=== PATIENT | female | born 1990 | race African-American/Black ===

== ENCOUNTER 2017-04-12 05:12 | Inpatient (IN) ==
--- NOTE | 2017-04-12 01:48 | HISTORY AND PHYSICAL ---
HISTORY OF PRESENT ILLNESS: Ernestine is a 27-year-old gravid female, 3, para 1-0-1-1, whose estimated gestational age is 39 weeks. Desires repeat section, as well as permanent sterilization. care has been uncomplicated. PAST MEDICAL HISTORY: History of staph skin infection, hidradenitis, prediabetic, insulin resistance. PAST SURGICAL HISTORY: section for failure to progress. ALLERGIES: No known drug allergies. MEDICATIONS: vitamins. SOCIAL HISTORY: The patient is a former smoker. PHYSICAL EXAMINATION: GENERAL: Gravid female, in no apparent distress. VITAL SIGNS: Afebrile. Vital signs stable. CARDIOVASCULAR: Regular rate and rhythm. LUNGS: Clear to auscultation bilaterally. ABDOMEN: Soft and nontender. PELVIC: Cervix is closed. PLAN: Patient set up for repeat section, with bilateral tubal ligation. Risks of surgery, including bleeding, infection, damage to pelvic organs, anesthesia, blood transfusion, as well as permanent and nonreversible nature of the procedure were all discussed at length, and informed consent was obtained. cc: Gus Aguirre MD
[2017-04-12] MEDS ORDERED: KEFZOL 1 GM/D5W 1 GM/50 ML IVPB IV PRN (05:15)
[2017-04-12] MEDS ORDERED: ZOFRAN IV PRN ×2 (06:01)
[2017-04-12] MEDS ORDERED: BENADRYL IV PRN (06:01)
[2017-04-12] MEDS ORDERED: NARCAN INJ PRN (06:01)
[2017-04-12] MEDS ORDERED: ZOFRAN ODT PO PRN (06:01)
[2017-04-12] MEDS ORDERED: NORCO-5 PO PRN (06:01)
[2017-04-12] MEDS ORDERED: NORCO-10 PO PRN ×2 (06:04→08:02)
[2017-04-12] MEDS: LR 1,000 ML IV SCH ×3 (06:06→13:19)
[2017-04-12 06:15] LABS: URINE SOURCE VOIDED
[2017-04-12] MEDS ORDERED: BICITRA PO ONE (06:15)
[2017-04-12] MEDS ORDERED: DURAMORPH ONE (06:22)
[2017-04-12] MEDS ORDERED: PITOCIN ONE ×2 (06:22→07:29)
[2017-04-12] MEDS ORDERED: PEPCID IV ONE (06:30)
[2017-04-12 06:37] LABS: BASO% 0.2 % (0.0-0.8); EOS# 0.06 X1000 (0.0-0.7); EOS% 0.5 % (0.0-10.0); HEMATOCRIT 30.2 % (37.0-47.0); HEMOGLOBIN 9.7 g/dL (12.0-16.0); IMM GRAN# 0.03 X1000 (0.0-0.04); IMM GRAN% 0.3 % (0.0-0.5); LYMPH# 2.32 X1000 (1.2-3.4); LYMPH% 21.2 % (20.5-51.1); MANUAL DIFF NEEDED? NO; MCH 19.8 PG (27-31); MCHC 32.1 g/dL (33-37); MCV 61.8 FL (81-99); MONO# 0.69 X1000 (0.11-0.59); MONO% 6.3 % (1.7-9.3); MPV 10.6 FL (7.4-10.4); NEUT% 71.5 % (42.2-75.2); PLT 246 X1000 (130-400); RBC 4.89 XMIL (4.2-5.4)
[2017-04-12 06:39] LABS: BILIRUBIN URINE NEGATIVE (NEGATIVE); BLOOD URINE NEGATIVE (NEGATIVE); CLARITY CLEAR (CLEAR); COLOR YELLOW; GLUCOSE URINE NEGATIVE (NEGATIVE); LEUKOCYTES URINE NEGATIVE (NEGATIVE); NITRITE URINE NEGATIVE (NEGATIVE); PROTEIN URINE NEGATIVE (NEGATIVE); UROBILINOGEN URINE NORMAL
[2017-04-12] MEDS ORDERED: NEO-SYNEPHRINE ONE (07:24)
[2017-04-12] MEDS ORDERED: ZOFRAN ONE (07:24)
[2017-04-12] MEDS ORDERED: PITOCIN 20 UNITS/LR 0 UNITS/0 ML IV.SOLN ONE (07:28)
[2017-04-12] MEDS ORDERED: TORADOL ONE (07:48)
[2017-04-12] MEDS ORDERED: DULCOLAX PR PRN (08:02)
[2017-04-12] MEDS ORDERED: DEMEROL IM PRN (08:02)
[2017-04-12] MEDS ORDERED: HYDROXYZINE PO PRN (08:02)
[2017-04-12] MEDS ORDERED: BOOSTRIX VACCINE IM ONE (08:02)
[2017-04-12] MEDS ORDERED: MYLICON PO PRN (08:02)
[2017-04-12] MEDS ORDERED: PITOCIN 20 UNITS/LR 20 UNITS/1,000 ML IV.SOLN IV ONE (08:02)
[2017-04-12] MEDS ORDERED: CYTOTEC PO PRN (08:02)
[2017-04-12] MEDS ORDERED: PITOCIN IM PRN (08:02)
[2017-04-12] MEDS ORDERED: DEMEROL PO PRN ×2 (08:02)
[2017-04-12] MEDS ORDERED: HYDROXYZINE IM PRN (08:02)
[2017-04-12] MEDS ORDERED: PHENERGAN IM PRN (08:02)
[2017-04-12] MEDS ORDERED: M-M-R II VACCINE SUBQ ONE (08:02)
[2017-04-12] MEDS ORDERED: AMBIEN PO PRN (08:02)
[2017-04-12] MEDS: MYLICON PO SCH ×4 (11:29→20:27)
[2017-04-12] MEDS: TORADOL IV SCH ×3 (12:13→17:42)
[2017-04-12] MEDS: PITOCIN 10 UNITS/LR 10 UNIT/1,000 ML IV.SOLN IV SCH ×2 (12:19→20:27)
[2017-04-12] MEDS: PERICOLACE PO SCH (20:27)
--- NOTE | 2017-04-13 03:50 | OPERATIVE NOTE ---
PROCEDURE DATE: 04/12/2017 PREOPERATIVE DIAGNOSES: 1. Intrauterine at 39 weeks. 2. Previous section. 3. Repeat section. 4. Desires permanent sterilization. POSTOPERATIVE DIAGNOSES: 1. Intrauterine at 39 weeks. 2. Previous section. 3. Repeat section. 4. Desires permanent sterilization. PROCEDURE: Repeat low transverse section and bilateral fimbriectomy. SURGEON: Dr. Gus Aguirre. SHOW WORKER: Dr. Ernst Avila. ANESTHESIA: Spinal per Dr Moody. ESTIMATED BLOOD LOSS: 700 mL. DRAINS: Beard catheter. FINDINGS: A female infant was delivered in the cephalic position at 7:22 by Kiwi vacuum extraction weighing 8 pounds 6 ounces. Apgars of 9 and 10 at 1 and 5 respectively. DESCRIPTION OF PROCEDURE: The patient was taken to the Operating Room. She was prepped and draped in the usual sterile fashion. After spinal anesthetic was administered, adequate anesthetic level was obtained. A time-out was performed, and everybody in the room are in agreement as to stated procedure. A Pfannenstiel incision was carried out with a scalpel in underlying fascia. The fascia was nicked and cut in the midline and extended with Daniel scissors. The fascia was taken off the underlying rectus muscles with Reinaldo clamps and Daniel scissors. The peritoneum was bluntly entered and extended under direct visualization with Daniel scissors. We did encounter dense adhesions from the lower uterine segment to the anterior abdominal hernandez which had to be taken down with electrocautery. The uterus was then scored in low transverse fashion. Amniotic membranes were bluntly ruptured and clear fluid noted. Difficulty was encountered elevating the head from the maternal pelvis. I did have to use bandage scissors to cut the rectus muscle but still difficulty was encountered and a Kiwi vacuum was used for head extraction after which the head was delivered easily with minimal traction. Shoulders and torso were then easily delivered. The Infant was placed on the mother's abdomen. The cord was clamped and cut. Baby bulb suctioned and handed to awaiting Pediatric team with good spontaneous cry. Placenta was delivered and uterus externalized. Good tone was noted. The uterine incision was closed with #1 chromic in a running locking fashion. We did have to oversew the lower uterine segment where the adhesion bands were taken down again with #1 chromic in a running locking fashion. Good hemostasis noted. Each fallopian tube was then elevated to the fimbriated end, doubly ligated with 0 plain suture and then removed. The uterus was then returned to the abdominoperitoneal cavity where copious irrigation with normal saline was used. All 3 surgical sites were inspected and noted to be hemostatic. All counts were correct. The peritoneum and muscle were then closed en bloc using #1 chromic suture in a running fashion. The subcutaneous fat was irrigated. Hemostasis with electrocautery. The fascia was closed with #1 Biosyn in a running fashion starting in the midline. The subcutaneous fat was then closed with 3-0 Polysorb in a running fashion. The skin was closed with 3-0 Biosyn in a subcuticular fashion. The patient was taken to the recovery room in stable condition. cc: Gus Aguirre MD
[2017-04-13 06:17] LABS: MANUAL DIFF NEEDED? NO
[2017-04-13 06:55] LABS: BASO% 0.2 % (0.0-0.8); EOS# 0.06 X1000 (0.0-0.7); EOS% 0.6 % (0.0-10.0); HEMATOCRIT 26.6 % (37.0-47.0); HEMOGLOBIN 8.4 g/dL (12.0-16.0); IMM GRAN# 0.02 X1000 (0.0-0.04); IMM GRAN% 0.2 % (0.0-0.5); LYMPH# 1.42 X1000 (1.2-3.4); LYMPH% 13.9 % (20.5-51.1); MCH 19.7 PG (27-31); MCHC 31.6 g/dL (33-37); MCV 62.4 FL (81-99); MONO# 0.56 X1000 (0.11-0.59); MONO% 5.5 % (1.7-9.3); MPV 10.4 FL (7.4-10.4); NEUT% 79.6 % (42.2-75.2); PLT 212 X1000 (130-400); RBC 4.26 XMIL (4.2-5.4)
[2017-04-13] MEDS ORDERED: LR 1,000 ML IV SCH (08:02)
[2017-04-13] MEDS: PERCOCET-10 PO PRN ×2 (08:34→21:20)
[2017-04-13] MEDS: MYLICON PO SCH ×4 (08:34→20:21)
[2017-04-13] MEDS: MOTRIN PO PRN ×2 (08:34→21:20)
[2017-04-13] MEDS: LR 1,000 ML IV SCH (11:51)
[2017-04-13] MEDS: PERICOLACE PO SCH (20:22)
--- NOTE | 2017-04-14 07:29 | DISCHARGE SUMMARY ---
ADMISSION DATE: 04/12/2017 DISCHARGE DATE: 04/14/2017 PRINCIPAL DIAGNOSIS: Intrauterine . SECONDARY DIAGNOSIS: History of section with desire for repeat. PRINCIPAL PROCEDURE: Repeat low transverse section with bilateral fimbriectomy. HOSPITAL COURSE: The patient was admitted to [facility] on 04/12/2017 for a scheduled repeat low transverse section with bilateral fimbriectomy. Procedure was performed without complications. The patient was subsequently to [facility] where her postoperative course remained uneventful. The patient is ambulating without assistance. She is tolerating pain well with p.o. pain medication. Her lochia is less than menses, and she notes no nausea or vomiting. CONDITION ON DISCHARGE: Stable. ELIMINATION CAPACITY: Independent. FEEDING CAPACITY: Independent. LOCOMOTION CAPACITY: Independent. REHAB POTENTIAL: Good. PROGNOSIS: Good. DISCHARGE MEDICATIONS: Percocet 10 mg 1 tablet q 3-4 hours p.r.n. pain. DIET: The patient to maintain a regular diet. PHYSICAL ACTIVITY: As tolerated. DISCHARGE INSTRUCTIONS: The patient is ordered to call or return if fever greater than 100.4, heavy vaginal bleeding, foul smelling vaginal discharge, or any other acute changes. She is to maintain pelvic rest x6 weeks. The patient to be discharged home with orders to follow up with Dr. Aguirre in 1 week for incision check. cc: MD Gus Hammond MD
[2017-04-14 07:51] VITALS: BP 136/76
[2017-04-14] MEDS: MOTRIN PO PRN (08:30)
[2017-04-14] MEDS: MYLICON PO SCH (08:30)
== END 2017-04-14 11:55 | disposition home or self-care (01) ==
LOC: P.LD 05:12 → P.WC 10:01
PROVIDERS: ADMIT Obstetrics & Gynecology; ATTEND Obstetrics & Gynecology